=== PATIENT | male | born 1945 | race Caucasian/White ===

== ENCOUNTER 2021-07-04 11:41 | Inpatient (IN) ==
--- NOTE | 2021-07-04 13:26 | DR.DIZZY ---
HPI Time seen Time Seen by Provider: 07/04/21 13:26 PCP Primary Care Physician: JOHN HIGH Complaint Chief Complaint Doctor Comments: Patient is Covid positive with complaints of still after one week having symptoms. Chief Complaint:: IN HOSPITAL A WEEK AGO FOR COVID DISCHAGED SATURDAY, IS CURRENTLY WEAK, NO APPEITE, SLEEPING MORE.HE IS NOT HISSELF PER THE CAREGIVER. HE WAS TREATED FOR AFIB WHILE IN HOSPITAL,HAV NOT STARTED ELIQUIS,PREDNISON,ALBUTERAL DUE TO HAVEN'T RECEIVED AT PHARMACY COVID-19 Coronavirus risk:travel/contact w/high risk person: No Has patient experienced Coronavirus symptoms: Yes Coronavirus symptoms experienced: Coughing and Shortness of Breath Nurses Notes Reviewed Nurses Notes Review: Yes Source History Provided: Patient, Family Member and Other Mode of Arrival Mode of Arrival: Ambulatory Timing Onset of Chief Complaint: 07/02/21 Onset of Symptoms Start Time: 15:00 Duration Duration: Since Onset Location of Weakness Weakness Location: Generalized Context Onset: At rest Does pt take pot. toxic medication?: No Stroke Symptoms: None Severity Severity: Abnormal activity level Associated signs and symptoms Associated Signs and Symptoms: Weak PMH PMH Past Medical History: Yes Past Medical History: Alzheimers, GERD and Hypertension Past Medical History Comment: AFIB,TRIPLE A,HYERLIPIEDIA,HEARING LOSS OT RIGHT EAR Past Surgical History: Yes Surgical History: ORE MINER BLASTING Surgery Past Surgical History Comment: HERNIA REPAIR,INNER RIGHT EAR Family History History of Family Medical Conditions: No (UNKNOWN) Social History Type of Tobacco Use: None Does any household member use tobacco: No Alcohol Use: None Do you use any recreational Drugs:: No Lives With: Other Lives Where: Assisted Care Infectious screening In the last 2 months have you had wt loss of >10#?: NO Have you had fever, night sweats or hemotysis?: No Have you traveled outside the country in the last 6 months?: No Isolation: Droplet ROS Review of Systems Constitutional: No Symptoms Reported and See HPI Eyes: No Symptoms Reported and See HPI ENTM: No Symptoms Reported and See HPI Respiratoy: No Symptoms Reported and See HPI Cardiovascular: No Symptoms Reported and See HPI Gastrointestinal/Abdominal: No Symptoms Reported and See HPI Genitourinary: No Symptoms Reported and See HPI Neurological: See HPI and Weakness Musculoskeletal: No Symptoms Reported and See HPI Integumentary: See HPI and Dryness Hematologic/Lymphatic: No Symptoms Reported and See HPI Endocrine: No Symptoms Reported and See HPI Psychiatric: No Symptoms Reported and See HPI All Other Systems: Reviewed and Negative PE Vital Signs Vitals: Temperature 98.2 F Pulse Rate [Left Radial] 90 Pulse Rate 81 Respiratory Rate 10 Blood Pressure [Left Arm] 141/74 Blood Pressure 144/70 O2 Sat by Pulse Oximetry 96 General Limitations: No Limitations General Appearance: Alert and In No Apparent Distress Head Head Exam: Normal Inspection Eyes Eye exam: Normal Appearance ENT ENT Exam: Normal Exam, Normal Oropharynx and Normal External Ear Exam Neck Neck Exam: Normal Inspection and Full ROM Chest Chest Inspection: Normal Inspection and Symmetric Chest Wall Rise Respiratory Respiratory Exam: Normal Lung Sounds Bilat Respiratory Exam: Bilateral: Clear to Auscultation Cardiovascular Cardiovascular Exam: Regular Rate and Normal Rhythm Abdominal Exam Abdominal Exam: Normal Inspection, Normal Bowel Sounds and Soft Rectal Rectal Exam: Deferred Extremeties Extremities Exam: Normal Inspection and Full ROM Back Back Exam: Normal Inspection and Full ROM Neurologic Neurological Exam: Alert and Oriented X3 Psychiatric Psychiatric Exam: Normal Affect and Normal Mood Skin Skin Exam: Warm, Dry, Intact and Normal Color MDM Additional Information Obtained Additional Information Obtained From: Family Differential Diagnosis Differential Diagnosis: Dehydration, Central Vertigo and Other (Covid 19 long hauler) COURSE Consultation Call Returned: 15:00 Consultation Comments: Dr. Alexander agrees to admit patient Education/Counseling Education/Counseling: Patient and Counseling Educated On: Treatment and Diagnosis ROR Labs Reviewed Laboratory Results Reviewed?: Yes Result Diagrams: 07/07/21 04:41 07/07/21 04:41 Laboratory: 07/04/21 18:02 Sputum - Expectorated Sputum Sputum Culture - Final Lyn Tropicalis 07/04/21 18:02 Sputum - Expectorated Sputum - Final WBC 10.7 X10^3/uL (3.6-10.0) H 07/06/21 05:16 RBC 3.80 X10^6/uL (4.7-6.0) L 07/06/21 05:16 Hgb 11.9 g/dL (13.5-18.0) L 07/06/21 05:16 Hct 35.0 % (42.0-54.0) L 07/06/21 05:16 MCV 92.1 fL (80.0-100.0) 07/06/21 05:16 MCH 31.4 pg (27.0-34.0) 07/06/21 05:16 MCHC 34.1 g/dL (33.0-35.0) 07/06/21 05:16 RDW 14.5 % (11.6-16.5) 07/06/21 05:16 Plt Count 184 X10^3/uL (150.0-450.0) 07/06/21 05:16 Plt Count Comment Adequate (ADEQUATE) 07/05/21 04:43 MPV 9.2 fL (7.4-11.0) 07/06/21 05:16 Neut % (Auto) 85.6 % (42.0-75.0) H 07/06/21 05:16 Lymph % (Auto) 8.2 % (21.0-51.0) L 07/06/21 05:16 [place] % (Auto) 5.7 % (0.0-13.0) 07/06/21 05:16 Eos % (Auto) 0.1 % (0.9-2.9) L 07/06/21 05:16 Baso % (Auto) 0.4 % (0.2-1.0) 07/06/21 05:16 Neut # (Auto) 9.1 x10^3/uL (2.2-4.8) H 07/06/21 05:16 Lymph # (Auto) 0.9 X10^3/uL (1.3-2.9) L 07/06/21 05:16 [place] # (Auto) 0.6 x10^3/uL (0.3-0.8) 07/06/21 05:16 Eos # (Auto) 0.0 x10^3/uL (0.0-0.2) 07/06/21 05:16 Baso # (Auto) 0.0 X10^3/uL (0.0-0.1) 07/06/21 05:16 Absolute Nucleated RBC 0.2 /100WBC 07/06/21 05:16 Total Counted 100 07/05/21 04:43 Neutrophils % (Manual) 93 % (39-76) H 07/05/21 04:43 Lymphocytes % (Manual) 6 % (13-43) L 07/05/21 04:43 Monocytes % (Manual) 1 % (4-9) L 07/05/21 04:43 Plt Morphology Comment Normal (NORMAL) 07/05/21 04:43 RBC Morphology Normal (NORMAL) 07/05/21 04:43 Sodium 145 mmol/L (136-145) 07/06/21 05:16 Corrected Sodium TNP 07/06/21 05:16 Potassium 3.4 mmol/L (3.5-5.1) L 07/06/21 05:16 Chloride 109 mmol/L (98-107) H 07/06/21 05:16 Carbon Dioxide 27.2 mmol/L (21-32) 07/06/21 05:16 BUN 28 mg/dL (7-18) H 07/06/21 05:16 Creatinine 1.60 mg/dL (0.70-1.30) H 07/06/21 05:16 Est GFR (MDRD) Af Amer 54 (>60) L 07/06/21 05:16 Est GFR (MDRD) Non-Af 45 (>60) L 07/06/21 05:16 Glucose 85 mg/dL (65-99) 07/06/21 05:16 Calcium 8.3 mg/dL (8.5-10.1) L 07/06/21 05:16 Corrected Calcium 9.5 mg/dL (8.5-10.1) 07/06/21 05:16 Total Bilirubin 0.70 mg/dL (0.2-1.0) 07/06/21 05:16 AST 31 Units/L (15-37) 07/06/21 05:16 ALT 57 Units/L (12-78) 07/06/21 05:16 Alkaline Phosphatase 55 Units/L (46-116) 07/06/21 05:16 Total Protein 6.0 g/dL (6.4-8.2) L 07/06/21 05:16 Albumin 2.5 g/dL (3.4-5.0) L 07/06/21 05:16 Globulin 3.5 g/dL (2.5-4.5) 07/06/21 05:16 Albumin/Globulin Ratio 0.7 Ratio (1.1-2.1) L 07/06/21 05:16 Specimen Type Clean catch urine 07/04/21 13:42 Urine Color Yellow (YELLOW) 07/04/21 13:42 Urine Appearance Clear (CLEAR) 07/04/21 13:42 Urine pH 6.0 (5.0 - 8.0) 07/04/21 13:42 Ur Specific [place] 1.020 (1.000-1.030) 07/04/21 13:42 Urine Protein 2+ (NEGATIVE) 07/04/21 13:42 Urine Glucose (UA) Negative (NEGATIVE) 07/04/21 13:42 Urine Ketones 1+ (NEGATIVE) 07/04/21 13:42 Urine Occult Blood 2+ (NEGATIVE) 07/04/21 13:42 Urine Nitrite Negative (NEGATIVE) 07/04/21 13:42 Urine Bilirubin Negative (NEGATIVE) 07/04/21 13:42 Urine Urobilinogen Normal (NORMAL) 07/04/21 13:42 Ur Leukocyte Esterase Negative (NEGATIVE) 07/04/21 13:42 Urine RBC 3-5 /HPF (0-3) A 07/04/21 13:42 Urine WBC 0-2 /HPF (0-5) 07/04/21 13:42 Ur Squamous Epith Cells Rare /HPF (NEGATIVE) 07/04/21 13:42 Urine Bacteria Negative /HPF (NEGATIVE) 07/04/21 13:42 Ur Culture Indicated? No/not indicated 07/04/21 13:42 SARS-CoV-2 (PCR) Positive (NEGATIVE) A 07/04/21 18:23 Influenza Type A (PCR) Negative (NEGATIVE) 07/04/21 18:23 Influenza Type B (PCR) Negative (NEGATIVE) 07/04/21 18:23 RSV (PCR) Negative (NEGATIVE) 07/04/21 18:23 XRAY XRAY Interpreted by: Radiologist X-ray Results: Name: Víctor HSIEH [facility]#: [id number] : 1945 Sex: M Location: ER Order Number(s): [id number] Procedure(s):CHEST, 1 VIEW Ordering Physician: CLAYTON ROWLEY Primary Care: Kelin STEVENS Service Date: 07/04/21 Service Time: 1335 HISTORY WEAKNESS, SOB Relevant Clinical Information STUDY CHEST, 1 VIEW COMPARISON None FINDINGS The trachea is midline. The cardiac silhouette is unremarkable. There is a peripheral interstitial infiltrate in the right upper lobe consistent with bronchopneumonia. There is no associated effusion adenopathy or pneumothorax. Minimal infiltrate is also seen in the right lung base. The bony thorax is unremarkable. IMPRESSION Multifocal infiltrates right upper lobe greater than right lower lobe consistent with bronchopneumonia. Findings may be due to atypical or viral/COVID-19 pneumonia. Recommend radiographic follow-up.. Electronically signed by: ROSY OG (Jul 04, 2021 13:55:34) Report Electronically signed: 07/04/21 [id number] CC: Clayton Rowley Opioid Opioid Risk Tool Total: 0 Total Score Risk Category: Low Risk Copyright: Lucho JEFFERSON predicting aberrant behaviors Diagnosis Discharge Problem: COVID-19 moiz anderson Instructions Instructions: How to Use an Incentive Spirometer Fatigue How to Wear and Take Off Your Mask - [facility] (09/15/2020) Weakness, [place]cal-[place]erd 10 Things You Can Do to Manage Your COVID-19 Symptoms at Home - [facility] (12/16/2019) Infection Prevention in the Home COVID-19: Quarantine vs. Isolation - [facility] (06/02/2020) Forms: Excuse From Work or School Precautions for COVID19 [facility] Social Distancing
--- NOTE | 2021-07-04 13:57 | RAD ---
HISTORYWEAKNESS, SOB Relevant Clinical InformationSTUDYCHEST, 1 VIEWCOMPARISONNoneFINDINGSThe trachea is midline. The cardiac silhouette is unremarkable. There is a peripheral interstitial infiltrate in the right upper lobe consistent with bronchopneumonia. There is no associated effusion adenopathy or pneumothorax. Minimal infiltrate is also seen in the right lung base. The bony thorax is unremarkable.IMPRESSIONMultifocal infiltrates right upper lobe greater than right lower lobe consistent with bronchopneumonia. Findings may be due to atypical or viral/COVID-19 pneumonia. Recommend radiographic follow-up..Electronically signed by: ROSY OG (Jul 04, 2021 13:55:34)
[2021-07-04 14:12] LABS: BILIRUBIN,URINE NEGATIVE (NEGATIVE); BLOOD/HEMOGLOBIN,URINE 2+ (NEGATIVE); GLUCOSE, URINE NEGATIVE (NEGATIVE); KETONES,URINE 1+ (NEGATIVE); LEUKOCYTE ESTERASE ,URINE NEGATIVE (NEGATIVE); NITRITES,URINE NEGATIVE (NEGATIVE); PROTEIN,URINE 2+ (NEGATIVE); UROBILINOGEN,URINE NORMAL (NORMAL)
[2021-07-04 14:15] LABS: APPEARANCE,URINE CLEAR (CLEAR); COLOR,URINE YELLOW (YELLOW)
[2021-07-04 14:19] LABS: BACTERIA,URINE NEGATIVE /HPF (NEGATIVE); SQUAMOUS EPITHELIAL CELL,UR RARE /HPF (NEGATIVE)
[2021-07-04 14:35] LABS: BASOPHILS # (AUTO) 0.1 X10^3/uL (0.0-0.1); BASOPHILS % (AUTO) 0.6 % (0.2-1.0); HEMATOCRIT 36.3 % (42.0-54.0); HEMOGLOBIN 12.1 g/dL (13.5-18.0); LYMPHOCYTES # (AUTO) 0.6 X10^3/uL (1.3-2.9); LYMPHOCYTES % (AUTO) 6.6 % (21.0-51.0); MEAN CORPUSCULAR HEMOGLOBIN 30.5 pg (27.0-34.0); MEAN CORPUSCULAR HGB CONC 33.4 g/dL (33.0-35.0); MEAN CORPUSCULAR VOLUME 91.2 fL (80.0-100.0); MEAN PLATELET VOLUME 9.8 fL (7.4-11.0); MONOCYTES # (AUTO) 0.5 x10^3/uL (0.3-0.8); MONOCYTES % (AUTO) 5.7 % (0.0-13.0); NEUTROPHILS # (AUTO) 8.2 x10^3/uL (2.2-4.8); NEUTROPHILS % (AUTO) 87.1 % (42.0-75.0); RED BLOOD COUNT 3.98 X10^6/uL (4.7-6.0); RED CELL DISTRIBUTION WIDTH 14.5 % (11.6-16.5); WHITE BLOOD COUNT 9.4 X10^3/uL (3.6-10.0)
[2021-07-04 14:50] LABS: ALANINE AMINOTRANSFERASE 80 Units/L (12-78); ALBUMIN 2.7 g/dL (3.4-5.0); ALKALINE PHOSPHATASE 59 Units/L (46-116); ASPARTATE AMINO TRANSFERASE 32 Units/L (15-37); BLOOD UREA NITROGEN 37 mg/dL (7-18); CALCIUM 8.2 mg/dL (8.5-10.1); CARBON DIOXIDE 25.1 mmol/L (21-32); CHLORIDE 111 mmol/L (98-107); COR CA(FOR HYPOALB) 9.2 mg/dL (8.5-10.1); CREATININE 1.95 mg/dL (0.70-1.30); SODIUM 147 mmol/L (136-145); eGFR NON BLACK RACES 36 (>60)
[2021-07-04] MEDS ORDERED: NS 1,000 ML IV 1,000 ML ONE (15:35)
[2021-07-04] MEDS: NS 1,000 ML IV 1,000 ML IV SCH ×2 (15:48→21:00)
[2021-07-04 18:27] VITALS: BMI 19.4
[2021-07-04] MEDS: BROVANA IN SCH (20:42)
[2021-07-04] MEDS: PULMICORT NEB TX 0.5 MG NEB SCH (20:42)
[2021-07-04] MEDS ORDERED: NS 100 ML IV + SPIKE MINIBAG* 100 ML IV ONE (20:44)
[2021-07-04] MEDS ORDERED: SOLU-Medrol 125 MG VIAL ONE (20:44)
[2021-07-04] MEDS ORDERED: ZOSYN VIAL 3.375 GRAMS IV ONE (20:44)
[2021-07-04] MEDS: VIBRAMYCIN PO SCH (21:03)
[2021-07-04] MEDS: ZINC SULFATE PO SCH (21:03)
[2021-07-04] MEDS: SOLU-Medrol 125 MG VIAL IVP SCH (21:03)
[2021-07-04] MEDS: PEPCID TAB 40 MG PO SCH (21:03)
[2021-07-04] MEDS: ZOSYN VIAL 3.375 GRAMS 3.375 G in NS 100 ML IV + SPIKE MINIBAG* 100 ML IV SCH (21:04)
[2021-07-04] MEDS ORDERED: LOPRESSOR TAB 25 MG PO ONE (21:40)
[2021-07-04] MEDS ORDERED: ZESTRIL TAB 20 MG PO ONE (21:41)
[2021-07-04] MEDS ORDERED: ZESTRIL TAB 20 MG ONE (22:15)
[2021-07-04] MEDS ORDERED: NS 50 ML IV 50 ML IV ONE (22:16)
[2021-07-04] MEDS: D5W IV SCH (22:35)
[2021-07-04] MEDS: ASCORBIC ACID MULTI IV SCH (22:35)
[2021-07-05] MEDS ORDERED: NS 50 ML IV 50 ML IV ONE (02:56)
[2021-07-05] MEDS: ASCORBIC ACID MULTI IV SCH (03:19)
[2021-07-05] MEDS: D5W IV SCH (03:19)
[2021-07-05 05:39] LABS: BASOPHILS % (AUTO) 0.1 % (0.2-1.0); HEMATOCRIT 34.1 % (42.0-54.0); HEMOGLOBIN 11.7 g/dL (13.5-18.0); LYMPHOCYTES # (AUTO) 0.2 X10^3/uL (1.3-2.9); LYMPHOCYTES % (AUTO) 2.8 % (21.0-51.0); MEAN CORPUSCULAR HEMOGLOBIN 31.6 pg (27.0-34.0); MEAN CORPUSCULAR HGB CONC 34.3 g/dL (33.0-35.0); MEAN PLATELET VOLUME 9.6 fL (7.4-11.0); MONOCYTES # (AUTO) 0.1 x10^3/uL (0.3-0.8); MONOCYTES % (AUTO) 1.4 % (0.0-13.0); NEUTROPHILS % (AUTO) 95.7 % (42.0-75.0); RED CELL DISTRIBUTION WIDTH 14.4 % (11.6-16.5); WHITE BLOOD COUNT 8.3 X10^3/uL (3.6-10.0)
[2021-07-05 05:45] LABS: ALANINE AMINOTRANSFERASE 65 Units/L (12-78); ALBUMIN 2.3 g/dL (3.4-5.0); ALKALINE PHOSPHATASE 54 Units/L (46-116); ASPARTATE AMINO TRANSFERASE 27 Units/L (15-37); BLOOD UREA NITROGEN 32 mg/dL (7-18); CALCIUM 7.7 mg/dL (8.5-10.1); CARBON DIOXIDE 24.2 mmol/L (21-32); CHLORIDE 111 mmol/L (98-107); COR CA(FOR HYPOALB) 9.1 mg/dL (8.5-10.1); CREATININE 1.57 mg/dL (0.70-1.30); SODIUM 147 mmol/L (136-145); TOTAL PROTEIN 5.5 g/dL (6.4-8.2); eGFR NON BLACK RACES 46 (>60)
[2021-07-05 06:04] LABS: PLATELET MORPHOLOGY COMMENT NORMAL (NORMAL)
[2021-07-05] MEDS: SOLU-Medrol 125 MG VIAL IVP SCH (06:11)
[2021-07-05] MEDS: ZOSYN VIAL 3.375 GRAMS 3.375 G in NS 100 ML IV + SPIKE MINIBAG* 100 ML IV SCH (06:12)
[2021-07-05] MEDS: NS 1,000 ML IV 1,000 ML IV SCH ×2 (06:13→08:10)
[2021-07-05] MEDS: BROVANA IN SCH ×2 (08:17→21:05)
[2021-07-05] MEDS: PULMICORT NEB TX 0.5 MG NEB SCH ×2 (08:17→21:05)
[2021-07-05] MEDS: ASCORBIC ACID INJ MULTI-DOSE VIAL 1,500 MG in NS 50 ML IV 50 ML IV SCH ×3 (08:49→20:38)
[2021-07-05] MEDS: PEPCID TAB 40 MG PO SCH ×2 (08:50→20:39)
[2021-07-05] MEDS: TOPROL XL PO SCH (08:50)
[2021-07-05] MEDS: VIBRAMYCIN PO SCH ×2 (08:51→20:39)
[2021-07-05] MEDS: TRICOR TAB 160 MG PO SCH (08:51)
[2021-07-05] MEDS: ZINC SULFATE PO SCH ×2 (08:51→20:39)
[2021-07-05] MEDS ORDERED: VITAMIN D (1.25MG) PO SCH (09:00)
[2021-07-05] MEDS ORDERED: VITAMIN A PO SCH (09:00)
[2021-07-05] MEDS ORDERED: LR 1,000 ML IV 1,000 ML IV ONE (10:00)
[2021-07-05] MEDS ORDERED: LOVENOX INJ 40 MG SYR SC SCH (10:00)
[2021-07-05] MEDS: ELIQUIS PO SCH ×2 (11:23→20:38)
[2021-07-05] MEDS: LR 1,000 ML IV 1,000 ML IV SCH ×2 (14:16→18:13)
[2021-07-05] MEDS ORDERED: RESTORIL CAP 15 MG PO PRN (20:23)
[2021-07-06] MEDS: LR 1,000 ML IV 1,000 ML IV SCH ×4 (02:17→22:52)
[2021-07-06] MEDS: ASCORBIC ACID INJ MULTI-DOSE VIAL 1,500 MG in NS 50 ML IV 50 ML IV SCH ×4 (02:19→20:44)
[2021-07-06 06:18] LABS: BASOPHILS % (AUTO) 0.4 % (0.2-1.0); EOSINOPHILS % (AUTO) 0.1 % (0.9-2.9); HEMOGLOBIN 11.9 g/dL (13.5-18.0); LYMPHOCYTES # (AUTO) 0.9 X10^3/uL (1.3-2.9); LYMPHOCYTES % (AUTO) 8.2 % (21.0-51.0); MEAN CORPUSCULAR HEMOGLOBIN 31.4 pg (27.0-34.0); MEAN CORPUSCULAR HGB CONC 34.1 g/dL (33.0-35.0); MEAN CORPUSCULAR VOLUME 92.1 fL (80.0-100.0); MEAN PLATELET VOLUME 9.2 fL (7.4-11.0); MONOCYTES # (AUTO) 0.6 x10^3/uL (0.3-0.8); MONOCYTES % (AUTO) 5.7 % (0.0-13.0); NEUTROPHILS # (AUTO) 9.1 x10^3/uL (2.2-4.8); NEUTROPHILS % (AUTO) 85.6 % (42.0-75.0); RED CELL DISTRIBUTION WIDTH 14.5 % (11.6-16.5); WHITE BLOOD COUNT 10.7 X10^3/uL (3.6-10.0)
[2021-07-06 06:37] LABS: ALANINE AMINOTRANSFERASE 57 Units/L (12-78); ALBUMIN 2.5 g/dL (3.4-5.0); ALKALINE PHOSPHATASE 55 Units/L (46-116); ASPARTATE AMINO TRANSFERASE 31 Units/L (15-37); BLOOD UREA NITROGEN 28 mg/dL (7-18); CALCIUM 8.3 mg/dL (8.5-10.1); CARBON DIOXIDE 27.2 mmol/L (21-32); CHLORIDE 109 mmol/L (98-107); COR CA(FOR HYPOALB) 9.5 mg/dL (8.5-10.1); SODIUM 145 mmol/L (136-145); eGFR NON BLACK RACES 45 (>60)
[2021-07-06] MEDS: BROVANA IN SCH ×2 (08:25→20:56)
[2021-07-06] MEDS: PULMICORT NEB TX 0.5 MG NEB SCH ×2 (08:25→20:56)
[2021-07-06] MEDS ORDERED: LR 1,000 ML IV 1,000 ML IV ONE (08:44)
[2021-07-06] MEDS: ELIQUIS PO SCH ×2 (09:04→20:45)
[2021-07-06] MEDS: TRICOR TAB 160 MG PO SCH (09:05)
[2021-07-06] MEDS: TOPROL XL PO SCH (09:05)
[2021-07-06] MEDS: VIBRAMYCIN PO SCH ×2 (09:05→20:45)
[2021-07-06] MEDS: VITAMIN D3 125 mcg (5,000 UNITS) PO SCH (09:05)
[2021-07-06] MEDS: PEPCID TAB 40 MG PO SCH (09:05)
[2021-07-06] MEDS: ZINC SULFATE PO SCH ×2 (09:05→20:46)
[2021-07-06] MEDS: VITAMIN A PO SCH (09:05)
[2021-07-07] MEDS: LR 1,000 ML IV 1,000 ML IV SCH ×3 (02:12→10:13)
[2021-07-07] MEDS: ASCORBIC ACID INJ MULTI-DOSE VIAL 1,500 MG in NS 50 ML IV 50 ML IV SCH ×2 (02:12→08:46)
[2021-07-07 05:36] LABS: BASOPHILS % (AUTO) 0.2 % (0.2-1.0); EOSINOPHILS % (AUTO) 0.1 % (0.9-2.9); HEMATOCRIT 34.7 % (42.0-54.0); HEMOGLOBIN 11.8 g/dL (13.5-18.0); LYMPHOCYTES # (AUTO) 0.9 X10^3/uL (1.3-2.9); LYMPHOCYTES % (AUTO) 10.5 % (21.0-51.0); MEAN CORPUSCULAR HEMOGLOBIN 31.3 pg (27.0-34.0); MEAN CORPUSCULAR VOLUME 91.9 fL (80.0-100.0); MEAN PLATELET VOLUME 10.1 fL (7.4-11.0); MONOCYTES # (AUTO) 0.9 x10^3/uL (0.3-0.8); MONOCYTES % (AUTO) 10.1 % (0.0-13.0); NEUTROPHILS # (AUTO) 6.8 x10^3/uL (2.2-4.8); NEUTROPHILS % (AUTO) 79.1 % (42.0-75.0); RED BLOOD COUNT 3.78 X10^6/uL (4.7-6.0); RED CELL DISTRIBUTION WIDTH 14.6 % (11.6-16.5); WHITE BLOOD COUNT 8.6 X10^3/uL (3.6-10.0)
[2021-07-07 05:49] LABS: ALANINE AMINOTRANSFERASE 50 Units/L (12-78); ALBUMIN 2.4 g/dL (3.4-5.0); ALKALINE PHOSPHATASE 54 Units/L (46-116); ASPARTATE AMINO TRANSFERASE 27 Units/L (15-37); BLOOD UREA NITROGEN 19 mg/dL (7-18); CALCIUM 8.2 mg/dL (8.5-10.1); CARBON DIOXIDE 32.4 mmol/L (21-32); CHLORIDE 108 mmol/L (98-107); COR CA(FOR HYPOALB) 9.5 mg/dL (8.5-10.1); CREATININE 1.44 mg/dL (0.70-1.30); SODIUM 147 mmol/L (136-145); TOTAL PROTEIN 5.7 g/dL (6.4-8.2); eGFR NON BLACK RACES 51 (>60)
[2021-07-07 08:06] VITALS: BP 143/77
[2021-07-07] MEDS: BROVANA IN SCH (08:10)
[2021-07-07] MEDS: PULMICORT NEB TX 0.5 MG NEB SCH (08:10)
[2021-07-07] MEDS: PEPCID TAB 40 MG PO SCH (08:46)
[2021-07-07] MEDS: ELIQUIS PO SCH (08:46)
[2021-07-07] MEDS: TOPROL XL PO SCH (08:47)
[2021-07-07] MEDS: TRICOR TAB 160 MG PO SCH (08:47)
[2021-07-07] MEDS: VIBRAMYCIN PO SCH (08:47)
[2021-07-07] MEDS: VITAMIN A PO SCH (08:48)
[2021-07-07] MEDS: VITAMIN D3 125 mcg (5,000 UNITS) PO SCH (08:48)
[2021-07-07] MEDS: ZINC SULFATE PO SCH (08:48)
== END 2021-07-07 10:25 | disposition home or self-care (01) | DRG 177 ==
LOC: ICU 12:07 → ER 12:07 → ICU 17:30
PROVIDERS: ADMIT Obstetrics & Gynecology Obstetrics; ATTEND Obstetrics & Gynecology Obstetrics